=== PATIENT | male | born 1950 | race Caucasian/White ===

== ENCOUNTER 2017-10-09 08:28 | Inpatient (IN) | payer OTHER, BC ==
[~2017-10-09] VITALS: Ht 182.9 cm; Wt 79.1 kg
[~2017-10-09 08:28] MED LIST: ASPIR-LOW81 MG PO; DAILY VALUE1 EACH PO; LOSARTAN POTAS100 MG PO; PRAVASTATIN SOD40 MG PO; PROAIR HFA8.5 GM IH; SPIRIVA1 INHALATI IH; SYMBICORT60 INHALAT IH; TYLENOL EXTRA500 MG PO
[2017-10-09 09:50] LABS: HEMATOCRIT 43.1 % (38.0-50.0); HEMOGLOBIN 14.7 G/DL (12.5-16.6); MCH 32.2 PG (29.0-34.0); MCHC 34.1 G/DL (30.0-36.0); MCV 94.5 FL (86-99); PLATELET COUNT 260 K/uL (156-360); RBC DIS.WIDTH-CV 13.4 % (11.8-14.6); RBC DIS.WIDTH-SD 46.4 % (39-53); RED BLOOD COUNT 4.56 M/uL (4.00-5.50); WHITE BLOOD COUNT 14.3 K/uL (4.1-10.2)
[2017-10-09 10:03] LABS: CHLORIDE 102 mEq/L (99-109); POTASSIUM 4.4 mEq/L (3.7-5.4); SODIUM 137 mEq/L (136-147)
[2017-10-09 10:04] LABS: GLUCOSE 94 mg/dL (70-99)
[2017-10-09 10:08] LABS: GFR ESTIMATE (CALCULATED) > 59 mL/min/ (58.99-99999)
[2017-10-09 10:09] LABS: UREA NITROGEN (BUN) 18 mg/dL (9-23)
[2017-10-09 10:52] LABS: ERTH.SED.RATE 49 MM/HR (0-20)
[2017-10-09 15:07] LABS: APPEARANCE CLEAR/COLORLESS; CSF TUBE NUMBER TUBE #4; RED CELL COUNT 12 /MM^3 (0-1); WHITE CELL COUNT 0 /MM^3 (0-5)
[2017-10-09 15:08] LABS: APPEARANCE (RECHECK) CLEAR/COLORLESS; CSF TUBE NUMBER (RECHECK) TUBE #1; RED CELL COUNT (RECHECK) 104 /MM^3 (0-1)
[2017-10-09 15:29] LABS: CSF PROTEIN 26 mg/dL (15-45)
[2017-10-09 15:34] LABS: GLUCOSE, CSF 65 mg/dL (40-80)
[2017-10-09] MEDS ORDERED: MUCINEX D ER T1 EACH PO (16:34)
[2017-10-09] MEDS ORDERED: NORVASC10 MG PO (16:34)
[2017-10-09 20:41] VITALS: BP 119/57
[2017-10-09 23:10] VITALS: BP 128/63
[2017-10-10 05:02] VITALS: BP 129/60
[2017-10-10 09:22] VITALS: BP 129/67
[2017-10-10 12:42] VITALS: BP 120/60
[2017-10-10 16:31] VITALS: BP 112/60
[2017-10-10 18:00] VITALS: BP 124/68
[2017-10-10 23:22] VITALS: BP 122/68
[2017-10-11 05:16] VITALS: BP 119/64
[2017-10-11 06:50] VITALS: BP 117/60
[2017-10-11 11:40] VITALS: BP 102/58
[2017-10-11 15:16] VITALS: BP 130/62
[2017-10-11 20:05] VITALS: BP 115/60
[2017-10-11 23:06] VITALS: BP 124/66
[2017-10-12 04:23] VITALS: BP 113/70
[2017-10-12 06:50] VITALS: BP 110/63
[2017-10-12 11:00] VITALS: BP 114/66
[2017-10-12 19:40] VITALS: BP 117/64
[2017-10-12 23:29] VITALS: BP 130/67
[2017-10-13 03:28] VITALS: BP 119/59
[2017-10-13 07:00] VITALS: BP 127/67
[2017-10-13 11:02] VITALS: BP 132/70
[2017-10-13 15:35] VITALS: BP 119/63
[2017-10-13] MEDS ORDERED: CLOPIDOGREL75 MG PO (17:08)
[2017-10-13] MEDS ORDERED: MOBIC15 MG PO (17:08)
[2017-10-13] MEDS ORDERED: LOPRESSOR25 MG PO (17:08)
== END 2017-10-13 18:05 | disposition home or self-care (01) | DRG 103 ==
LOC: EME 08:28 → 5EAST 15:55 → EDOF 15:55 → ENRESERV 15:58 → 5EAST 20:15
PROVIDERS: Emergency Medicine
PROC: 009U3ZX Drainage of Spinal Canal, Percutaneous Approach, Diagnostic (ICD-10-PCS; principal; 2017-10-09)
DX: R51 Headache (principal); I47.1 Supraventricular tachycardia; I65.02 Occlusion and stenosis of left vertebral artery; I65.23 Occlusion and stenosis of bilateral carotid arteries; M47.812 Spondylosis without myelopathy or radiculopathy, cervical region; J43.9 Emphysema, unspecified; I11.9 Hypertensive heart disease without heart failure; I25.10 Atherosclerotic heart disease of native coronary artery without angina pectoris; E78.5 Hyperlipidemia, unspecified; F17.210 Nicotine dependence, cigarettes, uncomplicated; Z79.82 Long term (current) use of aspirin; Z86.73 Personal history of transient ischemic attack (TIA), and cerebral infarction without residual deficits
CPT/HCPCS: 70450; 70496; 70498; 70551; 71046; 72125; 80048; 82945; 84157; 85027; 85652; 87070; 87205; 87502; 89051; 93005; 93880; 94640; 94640 76; 94799; 99281; 99285; J1644; J2270; J7030; J7512